=== PATIENT | male | born 1970 | race Caucasian/White ===

== ENCOUNTER → 2021-01-06 17:28 | Outpatient (CLI) | payer OTHER, SELFPAY ==
[2021-01-06 18:15] LABS: Basophils # 0.1 K/mm3 (0-0.2); Basophils % 0.7 % (0.1-2.0); Eosinophils # 0.2 K/mm3 (0.0-0.4); Eosinophils % 2.7 % (0.1-12.0); Hematocrit 49.3 % (42.0-52.0); Lymphocytes # 2.3 K/mm3 (0.7-4.5); Lymphocytes % 29.1 % (10-50); Mean Corpuscular HGB Conc 34.4 g/dL (31.8-35.4); Mean Corpuscular Hemoglobin 34.8 pg (27.0-31.2); Mean Corpuscular Volume 101.3 fl (80-94); Mean Platelet Volume 9.9 fl (7.4-10.4); Monocytes # 0.7 K/mm3 (0.1-1.0); Monocytes % 9.2 % (1.7-9.3); Neutrophils # 4.7 K/mm3 (1.8-7.8); Neutrophils % 58.3 % (37.0-80.0); Platelet Count 205 K/mm3 (142-424); Red Blood Count 4.87 M/mm3 (4.60-6.20); Red Cell Distribution Width 12.8 % (11.5-17.5)
[2021-01-06 19:39] LABS: Alanine Aminotransferase 65 U/L (12-78); Albumin Level 4.7 g/dl (3.5-5.0); Albumin/Globulin Ratio 1.9 (1.1-1.8); Alkaline Phosphatase 135 U/L (38-126); Anion Gap 11.3 mEq/L (5-15); Aspartate Amino Transferase 42 U/L (17-59); Bilirubin,Total 1.1 mg/dl (0.2-1.3); Blood Urea Nitrogen 10 mg/dl (9-20); Carbon Dioxide 25 mmol/L (22.0-30.0); Chloride 107 mmol/L (98-107); Chol/HDL Ratio 3.2 (1-3.5); Cholesterol 141 mg/dl (140-200); Estimated Glomerular Filt Rate 89 ml/min (>60); GFR (African American) 108 ML/MIN (>60); Globulin 2.5 g/dL (1.3-3.2); HDL Cholesterol 44 mg/dl (40-60); Potassium 4.3 mmoL/L (3.5-5.1); Sodium 139 mmol/L (136-145); Total Protein,Serum 7.2 g/dl (6.3-8.2); Triglycerides 177 mg/dl (30-150); VLDL Cholesterol 35 mg/dL (0-40)
[2021-01-06 19:51] LABS: Direct LDL Cholesterol 62.71 mg/dL (100-129)
[2021-01-06 19:59] LABS: T4 (Thyroxine) 9.7 ug/dl (5.53-11.0)
[2021-01-06 20:12] LABS: Calcium 9.3 mg/dl (8.4-10.2); Glucose 102 mg/dl (74-100); Thyroid Stimulating Hormone 3.54 uIU/mL (0.465-4.68)
== END ==
PROVIDERS: Visit Provider Family Medicine
DX: E03.9 Hypothyroidism, unspecified (principal); I10 Essential (primary) hypertension
CPT/HCPCS: 80053; 80061; 84436; 84443; 85025

== ENCOUNTER → 2022-03-07 10:13 | Outpatient (CLI) | payer OTHER, SELFPAY | PROVIDERS: PCP Family Medicine; Visit Provider Surgery | DX: Z01.812 Encounter for preprocedural laboratory examination (principal); Z20.822 Contact with and (suspected) exposure to COVID-19; Z12.11 Encounter for screening for malignant neoplasm of colon | CPT/HCPCS: C9803; U0003; U0005 ==

== ENCOUNTER 2022-03-10 07:59 | Day surgery (SDC) | payer OTHER, SELFPAY ==
[2022-03-06 11:11] VITALS: BMI 29.0
[2022-03-10] VITALS (7 sets, daily range): BP systolic 109–139; BP diastolic 70–91; PULSE 61–76; RESP 16–18; TEMP 36.2–36.6; O2SAT 92–97
--- NOTE | 2022-03-10 08:44 | P.PN_ITS ---
[facility] Anesthesia Checklist - Patient Identification Patient Identification: Arm Band - Structural Data Admitted From: Home Planned Operative Procedure/s: Colonoscopy Consent for Planned Operative Procedure(s) Verified: Yes Verified Documents: Surgical Consent, History and Physical - NPO Status Verified Time NPO: 00:00 - Additional verifications Anesthesia Reactions: No - Airway Assessment C-Spine Mobility Assessed: Yes (mp2) TMJ Mobility Assessed: Yes Dentition: Good Dentition - Neurological Assessment Level of Consciousness: Awake, Alert - Anesthesia Plan Anesthesia Risk discussed: Yes Anesthesia Plan: Verified ASA Class: II Anesthesia Type: MAC [facility] History I have reviewed the patient's past medical history: Yes Medical History: Reports:: Gastroesophageal Reflux Disease(GERD), Hyperlipidemia Denies:: Cancer, Diabetes Mellitus Type 1, Diabetes Mellitus Type 2, Internal Pacemaker, MRSA, Seizures *Have you ever received a pneumonia vaccine?: No *Have you received a flu vaccine this season?: No Other Medical History: Reports: Hypothyroidism Anesthesia experience/problems:: nac Other Surgeries: Yes: Other. No: Pacemaker Amputation: No Fractures: Yes (left ankle ORIF) - *Social History Last grade of school completed: High school graduate Smoking Status: Current every day smoker Tobacco Type: cigarettes # Packs/Day (cigarettes): 1 Alcohol Intake: current Alcohol Intake Frequency:: a few times a week Substance Use Type: denies use *Occupational Status:: employed Housing: house Household Members: family *Travel in the last 8 weeks: None Family Hx:: No significant family history
--- NOTE | 2022-03-10 09:58 | HMH.SCOPE ---
- Procedure: Date: 03/10/22 Patient Date of :: 1970 Procedure Performed:: Colonoscopy with polypectomy Indications:: Screening Performing Provider:: Jhony Puri MD Referring Provider:: Dr. Garcia Sedation:: Monitored anesthesia care Procedure:: After informed consent was obtained the patient was taken to the endoscopy suite. Sedation ensued after the patient was transferred to the left lateral decubitus position. Pulse, blood pressure, and oxygen saturation were monitored throughout the procedure. Digital rectal exam revealed no significant abnormality. The colonoscope was placed in position. The entire colon was evaluated. The colonoscope was carefully removed and the patient was transferred to recovery in stable condition. Please see findings and specimens below for detail. Findings:: Bowel preparation fairly poor Hemorrhoidal cushions Significant lack of relaxation Multiple large/complex polyps (see specimens) Specimens:: Large complex lobulated sessile polyp adjacent to ileocecal valve and adjacent cecal polyp (cold snare, cold biopsy forceps, and tattoo) Adjacent sessile lobulated polyps at 55 cm (cold snare) Polyp at 30 cm (cold snare) Adjacent polyps at 15 cm (cold snare) Polyp at 10 cm (cold snare) Recommendations:: Timing of repeat colonoscopy is pending pathology but will likely be around 6-12 months secondary to size/nature/number of polyps, need for short-term reevaluation of tattoo site, and fairly poor bowel preparation. Complications:: No immediate Estimated blood obtained (mL): 1
--- NOTE | 2022-03-10 12:08 | PC.NURSE ---
Patient stated he wants to leave, he feels fine and is ready to go. Instructed to wait on Dr Puri to come to postop and speak with him. Patient to BR. I told Dr Puri patient is leaving and has no discomfort. Dr Puri spoke with patient and reinforced to come to ER if any issues arise. Patient is stable
== END 2022-03-10 11:10 | disposition home or self-care (01) ==
PROVIDERS: PCP Family Medicine; Visit Provider Surgery
PROC: 0DJD8ZZ Inspection of Lower Intestinal Tract, Via Natural or Artificial Opening Endoscopic (ICD-10-PCS; CPT 45380; principal; 2022-03-10 09:30)
DX: Z12.11 Encounter for screening for malignant neoplasm of colon (principal); K63.5 Polyp of colon; K21.9 Gastro-esophageal reflux disease without esophagitis; E78.5 Hyperlipidemia, unspecified; Z72.0 Tobacco use; Z79.899 Other long term (current) drug therapy
CPT/HCPCS: 45380; 45385; J2704

== ENCOUNTER → 2022-09-25 07:22 | Outpatient (CLI) | payer OTHER, SELFPAY ==
--- NOTE | 2022-09-25 | CA_ITS ---
APPROVED REPORT Exam: Exercise Treadmill Technologist: Melodie Ortega, Ht: 6 ft 1 in Wt: 236 lbs BSA: 2.31 m2 HR: 83 bpm BP: 158/112 mmHg Medical History Medications: Omeprazole,,,,, Levothyroxine,,,,, Atorvastatin,,,,, Stress Test Details Test: James HR Resting HR: 77 bpm Max Heart Rate (APMHR): 168.412457 bpm Max HR Achieved: 154 bpm Target HR (85% APMHR): 142.559748 bpm % of APMHR: 91.67 Recovery HR: 96 bpm BP Resting BP: 172.0/107.0 mmHg Max BP: 194.0/96.0 mmHg Recovery BP: 168.0/95.0 mmHg ECG Resting ECG: SR Clinical Exercise duration: 07:28 min Highest Stage Achieved: III Exercise capacity: 10.1 METs Stress ECG Conclusion Test stopped due to: leg fatigue Symptoms: no chest pain, no SOA Arrhythmias/Ectopy: none Test Summary REST . . . . . . . Sitting REST . . . . . . . Standing REST 15:09 0.0 0.0 77 . 172/107 . . Stage 1 01:00 10.0 1.7 109 . . . . Stage 1 02:00 10.0 1.7 120 . . . . Stage 1 03:00 10.0 1.7 123 . 180/ 98 . . Stage 2 01:00 12.0 2.5 130 . . . . Stage 2 02:00 12.0 2.5 136 . . . . Stage 2 03:00 12.0 2.5 141 . 184/ 98 . . Stage 3 . . . . . . . Myoview Injected Stage 3 01:00 14.0 3.4 151 . . . . Stage 3 01:28 14.0 3.4 154 . . . Stop exercise at 07:28 RECOVERY 01:00 0.0 0.0 123 . . . . RECOVERY 02:00 0.0 0.0 113 . 194/ 96 . . RECOVERY 03:00 0.0 0.0 102 . 177/ 98 . . RECOVERY 04:00 0.0 0.0 98 . 170/ 94 . . RECOVERY 05:00 0.0 0.0 96 . 170/ 94 . . RECOVERY 05:14 0.0 0.0 95 . 168/ 95 . . Electronically signed by : Efrain Mcclain MD 09/25/2022 11:54:02
--- NOTE | 2022-09-25 07:22 | NM_ITS ---
APPROVED REPORT Exam: Nuclear Stress Test Indication: chest pain Patient Location: Outpatient Stress Tech: Melodie Nolan MS Tech:LEXY Yu RT(R)(N) Ht: 6 ft 1 in Wt: 225 lbs HR: 77 bpm BP: 172/107 mmHg BSA: 2.26 m2 TID: 1.12 BMI: 29.6 History: chest pain Procedure: Patient exercised on James protocol 7:28 minutes and sec, resting heart rate 77 bpm, resting blood pressure 172/107 mmHg, with exercise maximum heart rate achived was 154 bpm which is 92 % of the maximum predicted heart rate and blood pressure was 194/96 mmHg. Patient denied any complaint of chest pain. Patient has Good exercise capacity, achieved 10.1 METs of workload on treadmill, the blood pressure response to exercise was Adequate. Electrocardiogram Resting electrocardiogram shows sinus rhythm right bundle branch block with exercise there is less than 1.[address] segment depression noted from the baseline EKG. The EKG portion of the exercise Myoview is negative for ischemia. Cardiac Stress and Resting SPECT Images: Cardiac Stress and Resting SPECT images were obtained using technetium 99m Myoview 31.8 mCi stress and 10.85 mCi at rest. Gated SPECT for analysis of segmental wall motion and calculation of the ejection fraction is also done. Prone images were also obtained. Cardiac prone images show uniform myocardial activity without segmental perfusion abnormality, computer derived ejection fraction is 48% with no regional wall motion abnormality, right ventricle is mildly enlarged with normal contractility. Conclusion: 1. The EKG portion of the exercise Myoview is negative for ischemia, patient had good exercise capacity achieved 10.1 METS of workload on treadmill, the blood pressure response to exercise was adequate, patient denied any complaint of chest pain. 2. No scintigraphic evidence of reversible ischemia seen, computer derived ejection fraction is 48% with no regional wall motion abnormality, right ventricle is mildly enlarged with normal contractility. 3. Normal exercise Myoview study. Electronically signed by : Efrain Mcclain MD 09/25/2022 11:57:49
== END ==
PROVIDERS: PCP Family Medicine; Visit Provider Family Medicine
DX: R07.89 Other chest pain (principal); Z82.49 Family history of ischemic heart disease and other diseases of the circulatory system
CPT/HCPCS: 78452; 93017; A9502

== ENCOUNTER 2022-12-01 07:24 | Day surgery (SDC) | payer OTHER, SELFPAY ==
[2022-10-26 09:12] VITALS: BMI 29.1
[2022-11-26 13:54] VITALS: BMI 31.1
[2022-12-01 07:41] VITALS: BP 122/78; PULSE 75; RESP 18; TEMP 36.2; O2SAT 95
--- NOTE | 2022-12-01 07:57 | P.PN_ITS ---
[facility] Disclaimer: The information contained in this section may have been updated after the patient was seen, as this information can be updated by other users. Medical History History of gastroesophageal reflux (GERD) Hyperlipidemia Hypothyroid Sleep apnea Surgical History History of ankle surgery Family History Father Heart attack Mother Brain aneurysm Breast cancer Social History Smoking Status: Current every day smoker tobacco type: cigarettes packs per day: 1 years smoked: 30 alcohol intake: current substance use type: denies use current occupational status: employed Travel in the last 8 weeks: None household members: family housing: house current occupational exposures/hazards: No caffeine: Yes [facility] Anesthesia Checklist Patient Identification Patient Identification: Arm Band and Verbal (Name & ) Structural Data Admitted From: Home Planned Operative Procedure/s: Colonoscopy Consent for Planned Operative Procedure(s) Verified: Yes NPO Status Verified Time NPO: 00:00 Additional verifications Anesthesia Reactions: No Airway Assessment C-Spine Mobility Assessed: Yes TMJ Mobility Assessed: Yes Dentition: Good Dentition Neurological Assessment Level of Consciousness: Awake Hx Seizures: No Numbness or tingling in extremities: No Anesthesia Plan Anesthesia Risk discussed: Yes Anesthesia Plan: Verified ASA Class: III Anesthesia Type: MAC
--- NOTE | 2022-12-01 08:25 | P.PCN_ITS ---
Procedure: Date: 12/01/22 Patient Date of :: 1970 Procedure Performed:: Colonoscopy with polypectomy Indications:: History of colon polyps Note: In February 2022 the patient underwent a colonoscopy that was complicated by poor bowel preparation. Fairly severe lack of relaxation also noted. He did have hemorrhoidal cushions. Complex large sessile adenomatous polyps adjacent to ileocecal valve were excised. Tattoo was placed at this site for future reference. Adjacent adenomatous polyps were also excised to 55 cm. An additional adenoma at 30 cm was excised. Performing Provider:: Jhony Puri MD Referring Provider:: . Sedation:: Monitored anesthesia care Procedure:: After informed consent was obtained the patient was taken to the endoscopy suite. Sedation ensued after the patient was transferred to the left lateral decubitus position. Pulse, blood pressure, and oxygen saturation were monitored throughout the procedure. Digital rectal exam revealed no significant abnormality. The colonoscope was placed in position. The entire colon was evaluated. The colonoscope was carefully removed and the patient was transferred to recovery in stable condition. Please see findings and specimens below for detail. Findings:: Bowel preparation for Sessile polyp at 30 cm [not retrieved secondary to large volume of stool in region] Large dilated hemorrhoidal cushions with no definitive thrombosis Specimens:: None for pathology. Polyp at 30 cm not retrieved secondary to large volume of s tool in region. Recommendations:: Gastroenterology evaluation for likely chronic constipation Short-term repeat colonoscopy deferred to the gastroenterology service Complications:: Persistent poor bowel preparation Estimated blood obtained (mL): 1
[2022-12-01 08:31] VITALS: O2SAT 98
[2022-12-01 08:55] VITALS: BP 126/80; PULSE 77; RESP 12; TEMP 36.6; O2SAT 95
[2022-12-01 09:05] VITALS: BP 135/74; PULSE 72; RESP 16; O2SAT 96
[2022-12-01 09:15] VITALS: BP 127/75; PULSE 80; RESP 16; O2SAT 98
[2022-12-01 09:25] VITALS: BP 128/91; PULSE 70; RESP 16; TEMP 36.4; O2SAT 97
== END 2022-12-01 09:33 | disposition home or self-care (01) ==
PROVIDERS: PCP Family Medicine; Visit Provider Surgery
PROC: 0DJD8ZZ Inspection of Lower Intestinal Tract, Via Natural or Artificial Opening Endoscopic (ICD-10-PCS; CPT 45378; principal; 2022-12-01 08:30)
DX: Z12.11 Encounter for screening for malignant neoplasm of colon (principal); Z86.010 Personal history of colon polyps; Z91.199 Patient's noncompliance with other medical treatment and regimen due to unspecified reason; F17.210 Nicotine dependence, cigarettes, uncomplicated; Z79.899 Other long term (current) drug therapy
CPT/HCPCS: 45378

== ENCOUNTER 2024-09-27 10:38 | Outpatient (CLI) | payer OTHER, SELFPAY ==
[2024-09-27 18:53] LABS: Basophils # 0.1 K/mm3 (0-0.2); Eosinophils # 0.3 K/mm3 (0.0-0.4); Eosinophils % 2.8 % (0.1-12.0); Hematocrit 50.4 % (42.0-52.0); Hemoglobin 17.3 g/dL (14.1-18.0); Lymphocytes # 2.6 K/mm3 (0.7-4.5); Lymphocytes % 27.5 % (10-50); Mean Corpuscular HGB Conc 34.3 g/dL (31.8-35.4); Mean Corpuscular Hemoglobin 34.3 pg (27.0-31.2); Mean Platelet Volume 11.7 fl (7.4-10.4); Monocytes # 0.8 K/mm3 (0.1-1.0); Neutrophils # 5.6 K/mm3 (1.8-7.8); Platelet Count 205 K/mm3 (142-424); Red Blood Count 5.04 M/mm3 (4.60-6.20); Red Cell Distribution Width 13.2 % (11.5-17.5); White Blood Count 9.4 K/mm3 (4.8-10.8)
[2024-09-27 19:54] LABS: Alanine Aminotransferase 59 U/L (12-78); Albumin Level 4.4 g/dl (3.5-5.0); Albumin/Globulin Ratio 2.1 (1.1-1.8); Alkaline Phosphatase 125 U/L (38-126); Anion Gap 14.3 mEq/L (5-15); Aspartate Amino Transferase 35 U/L (17-59); Bilirubin,Total 0.7 mg/dl (0.2-1.3); Blood Urea Nitrogen 14 mg/dl (9-20); Calcium 9.4 mg/dl (8.4-10.2); Carbon Dioxide 26 mmol/L (22.0-30.0); Chloride 103 mmol/L (98-107); Chol/HDL Ratio 4.5 (1-3.5); Cholesterol 130 mg/dl (140-200); Estimated Glomerular Filt Rate 88 ml/min (>60); GFR (African American) 106 ML/MIN (>60); Globulin 2.1 g/dL (1.3-3.2); Glucose 125 mg/dl (74-100); HDL Cholesterol 29 mg/dl (40-60); Potassium 4.3 mmoL/L (3.5-5.1); Sodium 139 mmol/L (136-145); Total Protein,Serum 6.5 g/dl (6.3-8.2); Triglycerides 169 mg/dl (30-150); VLDL Cholesterol 34 mg/dL (0-40)
[2024-09-27 20:06] LABS: Direct LDL Cholesterol 61.99 mg/dL (100-129)
[2024-09-27 20:28] LABS: Prostate Specific Ag Screen 2.2 ng/ml (0.0-4.0)
[2024-09-27 21:08] LABS: HIV Combo NEGATIVE (Negative)
[2024-09-27 21:15] LABS: Hepatitis C Ab Qual. W/ RFX NEGATIVE (Negative)
== END 2024-09-27 23:59 | disposition home or self-care (01) ==
LOC: LAB.DROPOF 09-28 11:18
PROVIDERS: PCP Family Medicine; Visit Provider Family Medicine
DX: Z12.5 Encounter for screening for malignant neoplasm of prostate (principal); E78.5 Hyperlipidemia, unspecified; E03.9 Hypothyroidism, unspecified
CPT/HCPCS: 80053; 80061; 84436; 84443; 85025; 86803; 87389; G0103

== ENCOUNTER → 2025-01-10 06:30 | Outpatient (CLI) | payer OTHER, SELFPAY | LOC: SL 06:31 | PROVIDERS: PCP Family Medicine; Visit Provider Family Medicine | DX: G47.33 Obstructive sleep apnea (adult) (pediatric) (principal) | CPT/HCPCS: G0399 ==